=== PATIENT | female | born 1995 | race Hispanic/Latino ===

== ENCOUNTER 2024-11-15 12:54 | Emergency (ER) | payer BC ==
[2024-11-15] MEDS ORDERED: TDAP (DIPHTH,PERTUSS(ACELL),TET VAC) 0.5 ML VIAL IMVAC ONE (14:09)
[2024-11-15] MEDS ORDERED: HYDROCODONE/APAP 5/325 MG TAB ONE (14:09)
[2024-11-15] MEDS ORDERED: IBUPROFEN 400 MG TAB ONE (14:09)
--- NOTE | 2024-11-15 14:41 | EDPHYS ---
Physician Documentation [facility] Name: Lizeth Lamar Age: 28 yrs Sex: Female : 1995 Arrival Date: 11/15/2024 Time: 12:54 Bed 10 Private MD: ED Physician Kojo Espinoza HPI: 11/15 13:50 This 28 yrs old Female presents to ER via Ambulatory with complaints of Foot sb4 Injury, Foot Pain. 13:50 [place] all [place] a sudden she felt pain on her left foot. She sb4 walked out and noticed a puncture wound/laceration on her second toe and came to the ED. States tetanus shot is not up-to-date, is not . Historical: - Allergies: 13:46 No Known Allergies; ar8 - PMHx: 13:46 None; ar8 - Immunization history:: Last tetanus immunization: unknown. - Infectious Disease History:: Denies. - Social history:: Smoking status: Patient denies any tobacco usage or history of. ROS: 13:50 Constitutional: Negative for fever, chills, and weight loss, sb4 13:50 Skin: Positive for puncture, of the right second toe, 13:50 All other systems are negative, Exam: 13:50 Head/Face: Normocephalic, atraumatic. Eyes: Extra-ocular motions intact. Periorbital sb4 areas with no swelling, redness, or edema. ENT: Mucous membranes moist. Respiratory: No increased work of breathing, no retractions or nasal flaring. 13:50 Constitutional: The patient appears alert, awake, uncomfortable, 13:50 Skin: injury, puncture(s), that are superficial, of the right second toe, Vital Signs: 13:43 Pulse 70; Resp 18; Temp 97.4; Pulse Ox 100% ; Weight 72.57 kg; Height 5 ft. 3 in. ; ar8 Pain 7/10; 13:49 BP 115 / 74; ar8 13:43 Body Mass Index 28.34 (72.57 kg, 160.02 cm) ar8 13:43 Pain Scale: Adult ar8 MDM: 13:07 Medical Screening Exam initiated sb4 13:50 Differential diagnosis: Puncture, laceration, retained foreign body. sb4 14:36 Independent interpretation of the following test(s) in the Emergency Department X-Ray: sb4 My interpretation is My interpretation of the right foot x-ray images is no fracture, dislocation, or retained foreign body. 14:40 Data reviewed: vital signs, nurses notes, radiologic studies, and as a result, I will sb4 discharge patient. Counseling: I had a detailed discussion with the patient and/or guardian regarding the historical points, exam findings, and any diagnostic results supporting the discharge/admit diagnosis, radiology results, the need for outpatient follow up, for definitive care, to return to the emergency department if symptoms worsen or persist or if there are any questions or concerns that arise at home. 11/15 13:49 Order name: Foot Right 3 View XRAY sb4 11/15 14:40 Order name: Wound dressing; Complete Time: 14:58 sb4 Administered Medications: 14:13 Drug: Ibuprofen PO 800 mg PO once Route: PO; ss 14:58 Follow up: Response: No adverse reaction ap3 14:13 Drug: HYDROcodone-acetaminophen PO 5 mg-325 mg 1 tabs PO once Route: PO; ss 14:58 Follow up: Response: No adverse reaction; Pain is decreased ap3 14:19 Drug: Boostrix Tdap IM 0.5 ml IM once; as a single dose {Note: 37R34 01/20/27.} Route: ss IM; Site: left deltoid; 14:58 Follow up: Response: No adverse reaction ap3 Disposition Summary: 11/15/24 14:41 Discharge Ordered Notes: Location: Home sb4 Problem: new sb4 Symptoms: have improved sb4 Condition: Stable sb4 Diagnosis - Puncture wound without foreign body, right foot sb4 Followup: sb4 - With: Emergency Department - When: As needed - Reason: Trouble breathing, Worsening of condition Discharge Instructions: - Discharge Summary Sheet sb4 - Puncture Wound, [id number] sb4 Forms: - Antibiotic Education sb4 - Patient Portal Instructions sb4 - Leadership Thank You Letter sb4 Prescriptions: - Ibuprofen 800 mg Oral Tablet - take 1 tablet ORAL route every 8 hours As needed take with food; 30 tablet; sb4 Refills: 0, Product Selection Permitted - Cipro 500 mg Oral Tablet - take 1 tablet ORAL route every 12 hours for 7 days; 14 tablet; Refills: 0, sb4 Product Selection Permitted Signatures: Dispatcher [employer] Laura Ray RN RN ss Patience Dent PA-C PAMelania sb4 Juan Antonio Ratliff RN RN ar8 Ioana Krishnamurthy RN ap3 Corrections: (The following items were deleted from the chart) 13:50 13:50 Foot Right 3 View+RAD.RAD.BRZ ordered. EDMS EDMS
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
--- NOTE | 2024-11-15 15:15 | RAD REPORT ---
Exam:Foot Right 3 View CLINICAL HISTORY: Right foot pain FINDINGS: No fracture or dislocation seen A radiopaque foreign body not seen
[2024-11-15 21:04] VITALS: TEMP 97.4; O2SAT 100
[2024-11-15 21:05] VITALS: BP 115/74
== END 2024-11-15 15:03 | disposition home or self-care (01) ==
LOC: ER 12:54
DX: S91.331A Puncture wound without foreign body, right foot, initial encounter (principal); Z23 Encounter for immunization
CPT/HCPCS: 90715; 96372; 99284